=== PATIENT | female | born 1965 | race Caucasian/White ===

== ENCOUNTER 2016-08-27 14:38 | Emergency (ER) | payer BC, OTHER ==
[2016-08-27 15:03] VITALS: BP 144/99
[2016-08-27] MEDS ORDERED: Ketorolac 60 MG/2 ML SDV IM ONE (15:23)
[2016-08-27] MEDS ORDERED: Ketorolac 60 MG/2 ML SDV ONE (15:29)
--- NOTE | 2016-08-27 16:05 | EDM.PDOC ---
ED HPI GENERAL MEDICAL PROBLEM - General Chief Complaint: General Stated Complaint: RIGHT HAND INJURY Time Seen by Provider: 08/27/16 15:00 Source of Information: Reports: Patient History Limitations: Reports: No Limitations - History of Present Illness INITIAL COMMENTS - FREE TEXT/NARRATIVE: This is a stoic 51yo F who discovered pain and swelling of her right 5th metacrapal while moving. She did not recall the time of injury but did feel some pop 20-30 minutes prior and was continuing to move. Onset: Sudden Duration: Hour(s):, Constant Location: Reports: Upper Extremity, Right Front/Back Body Image: 1 - hematoma 3x5cm Quality: Reports: Ache Severity: Moderate Worsens with: Reports: Movement Associated Symptoms: Reports: No Other Symptoms Treatments EVENT SPECIALIST PRODUCT DEMONSTRATOR: Reports: Other (see below) Other Treatments EVENT SPECIALIST PRODUCT DEMONSTRATOR: pt took Tramadol Right Hand Pain Score (Numeric/FACES): 4 - Related Data Allergies Allergy/AdvReac Type Severity Reaction Status Date / Time No Known Allergies Allergy Verified 08/27/16 14:46 Home Meds: Home Meds Amitriptyline [Elavil] 1 - 2 tab PO QPM 08/27/16 [History] Aspirin [Adult Low Dose Aspirin EC] 81 mg PO DAILY 08/27/16 [History] Calcium Carbonate/Vitamin D3 [Calcium 600 + D3 Softgel] 1 each PO DAILY [History] Cyanocobalamin (Vitamin B-12) [Vitamin B-12] 500 mcg PO DAILY 08/27/16 [History] DULoxetine [Cymbalta] 30 mg PO DAILY 08/27/16 [History] Ergocalciferol (Vitamin D2) [Vitamin D2] 1 cap PO WEEKLY 08/27/16 [History] Gabapentin [Gabapentin] 300 mg PO TID 08/27/16 [History] LORazepam [Ativan] 1 - 2 tab PO DAILY PRN 08/27/16 [History] Methocarbamol [Methocarbamol] 500 mg PO TID 08/27/16 [History] Nabumetone [Nabumetone] 500 mg PO BID 08/27/16 [History] Pravastatin [Pravachol] 20 mg PO BEDTIME 08/27/16 [History] Pyridoxine HCl [Vitamin B-6] 100 mg PO DAILY 08/27/16 [History] traMADol [Take Home: traMADol 50 MG, 4 Tab Pack] 2 tab PO QID 08/27/16 [History] traZODone 50 mg PO BEDTIME 08/27/16 [History] Past Medical History - Past Health History Medical/Surgical History: Denies Medical/Surgical History HEENT History: Reports: None Cardiovascular History: Reports: High Cholesterol, Hypertension Respiratory History: Reports: None 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 OB/BYN History: parity: 4, gravity: 5 per patient communication Musculoskeletal History: Reports: Back Pain, Chronic, Fracture Psychiatric History: Reports: Anxiety Oncologic (Cancer) History: Reports: None - Past Surgical History HEENT Surgical History: Reports: Oral Surgery GI Surgical History: Reports: Appendectomy Female Surgical History: Reports: D&C, Hysterectomy Social & Family History - Family History Family Medical History: Noncontributory - Tobacco Use Smoking Status *Q: Current Every Day Smoker Years of Tobacco use: 20 Packs/Tins Daily: 1 Used Tobacco, but Quit: No Second Hand Smoke Exposure: No - Alcohol Use Days Per Week of Alcohol Use: 6 Number of Drinks Per Day: 2 Total Drinks Per Week: 12 - Recreational Drug Use Recreational Drug Use: No ED ROS GENERAL - Review of Systems Review Of Systems: ROS reveals no pertinent complaints other than HPI. ED EXAM, GENERAL - Physical Exam Exam: See Below Exam Limited By: No Limitations General Appearance: Alert, WD/WN, No Apparent Distress Eye Exam: Bilateral Eye: EOMI Ears: Normal External Exam Nose: Normal Inspection Throat/Mouth: Normal Inspection Head: Atraumatic, Normocephalic Neck: Normal Inspection Respiratory/Chest: No Respiratory Distress, Lungs Clear, Normal Breath Sounds Cardiovascular: Normal Peripheral Pulses, Regular Rate, Rhythm Extremities: Other (swelling and tenderness at site of fracture; good extension of 5th digit and rom, no loss of sensation) Neurological: Alert, Oriented, CN II-XII Intact, Normal Reflexes, No Motor/ Sensory Deficits Course - Vital Signs Last Recorded V/S: Last Vital Signs Temp 36.7 C 08/27/16 14:53 Pulse 97 08/27/16 14:53 Resp 18 08/27/16 14:53 BP 144/99 H 08/27/16 14:53 Pulse Ox 98 08/27/16 14:53 - Orders/Labs/Meds Orders: Active Orders 24 hr Category Date Time Status Hand 2V Rt [CR] Stat Exams 08/27/16 15:37 Taken Hand 2V Rt [CR] Stat Exams 08/27/16 17:14 Ordered Hand Comp Min 3V Rt [CR] Stat Exams 08/27/16 14:53 Taken Meds: Medications Discontinued Medications Generic Name Dose Route Start Last Admin Trade Name Braeden PRN Reason Stop Dose Admin Ketorolac Tromethamine 60 mg 08/27/16 15:23 08/27/16 15:29 Toradol IM 08/27/16 15:24 60 mg ONETIME ONE Administration Ketorolac Tromethamine Confirm 08/27/16 15:29 08/27/16 15:33 Toradol Administered 08/27/16 15:30 Not Given Dose 60 mg .ROUTE .STK-MED ONE - Re-Assessments/Exams Free Text/Narrative Re-Assessment/Exam: Reduction of fracture done - placed in plastic splint - good reduction. Discussed plans with Dr. Yusuf Roque in [place]. Preferably to be placed in fiberglass splint - during placement of fiberglass splint the reduction failed and moved apart on repeat xray. Reduction tried 3 times with repeat x- ray 3 times and unable to repeat reduction. Consulted Dr. Goldberg again and patient will stay in current splint and f/u tomorrow. Departure - Departure Time of Disposition: 18:00 Disposition: Home, Self-Care 01 Condition: undetermined Clinical Impression: Fracture, metacarpal shaft Qualifiers: Encounter type: initial encounter Metacarpal bone: fifth Fracture type: closed Fracture alignment: displaced Laterality: right Qualified Code(s): S62.326A - Displaced fracture of shaft of fifth metacarpal bone, right hand, initial encounter for closed fracture - Discharge Information Instructions: Metacarpal Fracture, Cast or Splint Care Referrals: PCP,None [Primary Care Provider] - Forms: ED Department Discharge Additional Instructions: Follow up with orthopedics in [place] in 1-2 weeks. Don't wait more then 2 weeks. Take CD with you to give to them. Take you regular home pain medications. Ice and elevated extremity. - Problem List Review Problem List Initiated/Reviewed/Updated: Yes - My Orders Last 24 Hours: My Active Orders 08/27/16 14:53 Hand Comp Min 3V Rt [CR] Stat 08/27/16 15:37 Hand 2V Rt [CR] Stat 08/27/16 17:14 Hand 2V Rt [CR] Stat - Assessment/Plan Last 24 Hours: My Active Orders 08/27/16 14:53 Hand Comp Min 3V Rt [CR] Stat 08/27/16 15:37 Hand 2V Rt [CR] Stat 08/27/16 17:14 Hand 2V Rt [CR] Stat Plan: Counseled on supportive care and pain control. Splint applied and patient to f/ u with Dr. Goldberg in [place] for clinic appointment and surgery in the afternoon. One call will make appointment tomorrow. Patient to be clear liquids no milk or coffee until clinic appointment.
--- NOTE | 2016-08-28 14:02 | CR ---
DATE OF SERVICE: 08/27/2016 CLINICAL DATA: Post reduction. RIGHT HAND Post-reduction views with a splint were performed. Comparison is made to a prior exam from earlier in the day. Again noted is the fracture through the distal 5th metacarpal. The fracture fragments have improved in alignment and position with minimal displacement. No new abnormalities. [id number] [facility]
--- NOTE | 2016-08-28 14:12 | CR ---
DATE OF SERVICE: 08/27/2016 CLINICAL DATA: Possible broken hand. RIGHT HAND There is an oblique fracture through the distal diametaphysis of the 5th metacarpal. There is ventral and lateral displacement of the distal fragment with respect to the proximal. No other acute abnormalities. MTDD
== END 2016-08-27 18:00 | disposition home or self-care (01) ==
LOC: LB.ED 14:38
DX: S62.326A Displaced fracture of shaft of fifth metacarpal bone, right hand, initial encounter for closed fracture (principal); E78.00 Pure hypercholesterolemia, unspecified; I10 Essential (primary) hypertension; F41.9 Anxiety disorder, unspecified; F17.210 Nicotine dependence, cigarettes, uncomplicated; X58.XXXA Exposure to other specified factors, initial encounter; Z79.899 Other long term (current) drug therapy; Z79.82 Long term (current) use of aspirin
CPT/HCPCS: 26605; 73120; 73130; 96372; 99283; J1885